=== PATIENT | female | born 1970 | race Caucasian/White ===

== ENCOUNTER 2017-07-12 10:19 | Emergency (ER) | payer SELFPAY ==
[~2017-07-12] VITALS: Ht 152.4 cm; Wt 61.2 kg
[2017-07-12 10:38] VITALS: BP 142/84
--- NOTE | 2017-07-12 10:44 | NUR ---
[place]id[place] to bed 01.
--- NOTE | 2017-07-12 10:49 | NUR ---
PT PRESENTS TO ER W/C/O LEFT KNEE PAIN X6 MONTHS, WITH THE LAST 2 DAYS GETTING INCREASINGLY WORSE. SKIN IS PINK/WARM/DRY; AAOX4 WITH EVEN AND STEADY GAIT; LUNGS CLEAR BL; PATIENT STATES PAIN OF 0/10 AT THIS TIME; PATIENT POSITIONED FOR COMFORT; HOB ELEVATED; BEDRAILS UP X2; BED DOWN. ER MD MADE AWARE OF PT STATUS.
--- NOTE | 2017-07-12 11:14 | NUR ---
ER MD DR. MCKINNON EVALUATING PT AT BEDSIDE.
[2017-07-12] MEDS ORDERED: KETOROLAC 60 MG/2 ML VIAL IM ONE (11:25)
[2017-07-12 11:40] VITALS: BP 131/63
--- NOTE | 2017-07-12 11:40 | NUR ---
Patient discharged with BP 131/63, DENIES HEADACHE AT THIS TIME. Written and verbal after care instructions given and explained. Patient alert, oriented and verbalized understanding of instructions. Ambulatory with steady gait. All questions addressed prior to discharge. ID band removed. Patient advised to follow up with PMD. Rx of NORCO & IBUPROFEN given. Patient educated on indication of medication including possible reaction and side effects. Opportunity to ask questions provided and answered.
== END 2017-07-12 11:40 | disposition home or self-care (01) ==
LOC: MED 10:19
DX: M25.562 Pain in left knee (principal)
CPT/HCPCS: 73562; 96372; 99284; J1885

== ENCOUNTER 2022-12-11 08:37 | Emergency (ER) | payer MEDICAID ==
[~2022-12-11] VITALS: Ht 152.4 cm; Wt 70.8 kg
[2022-12-11 08:42] VITALS: BP 144/103
[2022-12-11] MEDS ORDERED: CYCLOBENZAPRINE 10 MG TAB PO ONE (08:55)
[2022-12-11] MEDS ORDERED: KETOROLAC 30 MG/ML VIAL IM ONE (08:55)
[2022-12-11 10:17] LABS: BASOPHILS % (AUTO) 0.6 % (0.0-2.0); EOSINOPHILS # (AUTO) 0.1 K/uL (0-0.4); EOSINOPHILS % (AUTO) 1.3 % (0.0-4.0); HEMOGLOBIN 14.4 g/dL (12.0-16.0); LYMPHOCYTES # (AUTO) 3.4 K/uL (2.5-16.5); LYMPHOCYTES % (AUTO) 51.5 % (20.5-51.1); MEAN CORPUSCULAR HEMOGLOBIN 32 pg (27-31); MEAN CORPUSCULAR HGB CONC 34 g/dL (33-37); MEAN CORPUSCULAR VOLUME 92.4 fL (80-94); MONOCYTES # (AUTO) 0.5 K/uL (0.8-1.0); MONOCYTES % (AUTO) 7.7 % (1.7-9.3); NEUTROPHILS # (AUTO) 2.6 K/uL (1.8-7.7); NEUTROPHILS % (AUTO) 38.9 % (42.2-75.2); PLATELET COUNT (AUTO) 248 K/uL (140-450); RED BLOOD CELL COUNT(AUTO) 4.55 MIL/uL (4.20-5.40); RED CELL DISTRIBUTION WIDTH 12.6 % (11.6-13.7); WHITE BLOOD COUNT (AUTO) 6.6 K/uL (4.8-10.8)
[2022-12-11 10:20] LABS: APPEARANCE,URINE CLEAR (CLEAR); BILIRUBIN,URINE NEGATIVE (NEGATIVE); BLOOD, URINE NEGATIVE (NEGATIVE); COLOR,URINE YELLOW (YELLOW); LEUKOCYTE ESTERASE ,URINE NEGATIVE (NEGATIVE); NITRITE, URINE NEGATIVE (NEGATIVE); UGLUCOSE NEGATIVE (NEGATIVE)
[2022-12-11 10:25] LABS: ANION GAP 10.7 (8-16); CARBON DIOXIDE 29.1 mmol/L (21-32); CREATININE 0.7 mg/dL (0.6-1.3); POTASSIUM 3.8 mmol/L (3.5-5.1)
[2022-12-11] MEDS ORDERED: CYCL-711 PO (10:49)
[2022-12-11] MEDS ORDERED: IBUP-1842 PO (10:49)
== END 2022-12-11 10:59 | disposition home or self-care (01) ==
LOC: MED 08:37
DX: R07.9 Chest pain, unspecified (principal); M54.6 Pain in thoracic spine; R10.9 Unspecified abdominal pain; Z79.899 Other long term (current) drug therapy
CPT/HCPCS: 36415; 71045; 80048; 81003; 84484; 85025; 93005; 96372; 99285; J1885; Q0092

== ENCOUNTER 2024-04-22 16:05 | Emergency (ER) | payer SELFPAY ==
[~2024-04-22] VITALS: Ht 152.4 cm; Wt 89.8 kg
[~2024-04-22 16:05] MED LIST: CYCL-711 PO; IBUP-1842 PO
[2024-04-22 16:42] VITALS: BP 146/79; PULSE 72; RESP 18; TEMP 98.1; O2SAT 99
--- NOTE | 2024-04-22 16:45 | NUR ---
53F presents to ED with c/o RLE pain [id number]. Pt reports while walking, twisted her ankle and heard a pop behind her knee about 2 months ago; since then pain has worsened and spread down right leg. Pt reports taking unknown pain medication from [place], with mild relief of pain.
--- NOTE | 2024-04-22 17:12 | NUR ---
xray at bedside.
[2024-04-22] MEDS: KETOROLAC 30 MG/ML VIAL IM ONE (17:20)
[2024-04-22] MEDS ORDERED: NAPR-1704 PO (18:10)
== END 2024-04-22 18:20 | disposition home or self-care (01) ==
LOC: MED 16:05
DX: S89.91XA Unspecified injury of right lower leg, initial encounter (principal); M25.461 Effusion, right knee; R03.0 Elevated blood-pressure reading, without diagnosis of hypertension; Z79.1 Long term (current) use of non-steroidal anti-inflammatories (NSAID); Z79.899 Other long term (current) drug therapy; X58.XXXA Exposure to other specified factors, initial encounter; Y93.89 Activity, other specified; Y92.89 Other specified places as the place of occurrence of the external cause; Y99.8 Other external cause status
CPT/HCPCS: 73562; 96372; 99283; J1885